=== PATIENT | female | born 1970 | race Caucasian/White ===

== ENCOUNTER → 2020-06-05 10:40 | Outpatient (CLI) | payer SELFPAY ==
--- NOTE | 2020-06-05 10:45 | VDLE_ITS ---
Reason For Study: VARICOSE VEINS RIGHT LEFT CFV is compressible, spontaneous, phasic, CFV is compressible, spontaneous, phasic, competent and demonstrates normal competent, and demonstrates normal augmentation. augmentation. Procedure FV is compressible, spontaneous, phasic, Exam performed in department. competent and demonstrates normal A preliminary report was called and/or faxed augmentation. to Dr Dooley's RN. POP V is compressible, spontaneous, phasic, competent and demonstrates normal augmentation. T/P Trunk is compressible. PTV is compressible. LT PerV is compressible. Left GSV is dilated and NONCOMPRESSIBLE from the SFJ to the knee. GSV is compressible for the remainder of the vessel. Left SSV is dilated and NONCOMPRESSIBLE throughout. Interpretation Summary There is no evidence of left lower extremity deep vein thrombosis. Superficial thrombophlebitis left great saphenous vein from the saphenofemoral junction to the knee. Superficial thrombophlebitis left small saphenous vein Patent and compressible right common femoral vein Ordering Physician: Everardo Dooley Referring Physician: Everardo Dooley Performed By: Laurel Tapia, PUSHPA, RVT
== END ==
PROVIDERS: Referring Provider Physician Assistant; Visit Provider Physician Assistant
DX: I83.812 Varicose veins of left lower extremity with pain (principal)
CPT/HCPCS: 93971

== ENCOUNTER → 2020-10-23 08:31 | Outpatient (CLI) | payer SELFPAY ==
--- NOTE | 2020-10-23 08:35 | VDLE_ITS ---
Reason For Study: Pain, Hx of SVT RIGHT LEFT CFV is compressible, spontaneous, phasic, CFV is compressible, spontaneous, phasic, competent and demonstrates normal competent, and demonstrates normal augmentation. augmentation. FV is compressible, spontaneous, phasic, competent and demonstrates normal augmentation. POP V is compressible, spontaneous, phasic, competent and demonstrates normal augmentation. T/P Trunk is compressible. PTV is compressible. LT PerV is compressible. Lt GSV is dilated and non compressible at prox and mid thigh Lt SFJ is compressible Lt SSV is compressible Improvement from previous study done on 06/2020 Image 19 is mislabeled, should be labeled Lt SFJ. VL/Venous Duplex US, Unilateral Interpretation Summary There is no evidence of left lower extremity deep vein thrombosis. Superficial thrombophlebitis left great saphenous vein Resumption of compressibility left small saphenous vein Improvement noted since the previous examination of June 05, 2020 Normal flow patterns right common femoral vein Ordering Physician: Everardo Dooley Referring Physician: Everardo Dooley Performed By: Carmen Alston, PUSHPA, RVT
== END ==
PROVIDERS: PCP Physician Assistant; Referring Provider Physician Assistant; Visit Provider Physician Assistant
DX: I83.812 Varicose veins of left lower extremity with pain (principal)
CPT/HCPCS: 93971

== ENCOUNTER 2021-02-12 00:52 | Emergency (ER) | payer OTHER, SELFPAY ==
[2021-02-12 00:52] VITALS: BP 131/96; PULSE 79; RESP 18; O2SAT 98
[2021-02-12 00:53] VITALS: PULSE 76; RESP 18; TEMP 36.2; O2SAT 98; BMI 25.8
--- NOTE | 2021-02-12 01:01 | EX.ED.UPPERE ---
HPI History of Present Illness Chief Complaint: Upper Extremity Injury Informant: patient Narrative Narrative: Patient fell off a ladder while standing on the 2nd rung. She fell on outstretched hand. She has pain in her right wrist and forearm area. She never hit her head. No loss of consciousness. No other areas are sore. Ice helps and she took Motrin that has helped. Motion or pressing on it makes it worse. She is right-hand dominant. PFSH PFSH Home Medications oxycodone-acetaminophen [Percocet] 1 tab PO Q6H PRN 3 Days #12 tab 02/12/21 [Rx Last Taken Unknown] Allergy/AdvReac Type Severity Reaction Status Date / Time No Known Allergies Allergy Verified 02/12/21 00:54 Social History Smoking Status: Current every day smoker tobacco type: cigarettes ROS ROS ED Eyes Eyes: Denies blurry vision Gastrointestinal Gastrointestinal: Denies nausea or vomiting Musculoskeletal Musculoskeletal: Reports other Details: See history of present illness. ; Denies back pain or neck pain Integumentary Denies Abrasions or rash Neurologic Neurologic: Denies paresthesias or weakness Hematologic/Lymphatic Hematologic/Lymphatic: Denies easy bleeding or easy bruising EXAM Physical Exam Const Vital Signs: 02/12/21 00:52 02/12/21 00:53 Temperature 97.1 F L Temperature Source Temporal Pulse Rate 79 76 Respiratory Rate 18 18 Blood Pressure 131/96 H Blood Pressure Mean 107 Pulse Ox 98 98 Oxygen Delivery Method Room Air Room Air Positive well nourished and well developed General Appearance ED: well developed HEENT normocephalic and atraumatic Resp normal respiratory effort Back/Spine Cervical Spine: Negative for cervical spine tenderness Thoracic Spine / Upper Back: Negative for thoracic spinal tenderness Lumbar Spine / Lower Back: Negative for lumbar spinal tenderness Extremity Extremity Narrative: There may be just a hint of swelling dorsal distal aspect of her right forearm/wrist. No deformity noted. There are some mild tenderness there. No tenderness in the hand. Neuro oriented x3, no focal motor deficits and no sensory deficits noted Sensorium / Orientation: alert Psych mental status grossly normal Skin Skin Narrative: No abrasions or lacerations. Lesions: no lesions Rashes: no rashes MDM MDM MDM Narrative Medical decision making narrative: X-rays do show a distal radius fracture with minimal displacement. We discussed options/plan. Patient was placed in a dorsal and volar splint with the wrist in neutral to slightly volar angulation. We will give her oxycodone here. I will give her a prescription to go. She will be referred to Dr. Delgado of orthopedics. It was explained that she will likely get a full cast in a few days to a week. If she has numbness tingling tightness increasing pain or any other concerns she should return. Procedure: Splint placement Her right wrist was placed in a dorsal and volar splint using 3 inch padded fiberglass. Milton wrap applied over this. Splint was applied so she had range of motion of her fingers. It went to the proximal forearm. She was checked after splint placement had good range of motion capillary refill and sensation. She had had an [place] wrap around this. She tolerated this well. Discharge Plan Triage Chief Complaint: Upper Extremity Injury ED Provider: Mario Partida Dx/Rx/DC Orders Clinical Impression: Fall from ladder, Colles' fracture of right radius Instructions: ED Colles Fracture No Reduction ... Prescriptions: New oxycodone-acetaminophen [Percocet] 5-325 mg tablet 1 tab PO Q6H PRN (Reason: pain) 3 Days Qty: 12 RF: 0 Primary Care Provider: Everardo Dooley Referrals: Everardo Dooley DO [Primary Care Provider] - Aiden Delgado MD [STAFF PHYSICIAN] - As soon as possible Disposition Disposition: Home, Self Care
--- NOTE | 2021-02-12 01:08 | RAD_ITS ---
STUDY: X-RAY - RIGHT RADIUS AND ULNA REASON FOR EXAM: Female, 50 years old. trauma TECHNIQUE: 2 view(s) of the forearm. COMPARISON: None. FINDINGS: There is no demonstrated soft tissue swelling. There is buckle fracture in the distal metaphysis of the radius. Normal visualized ulna. RAD/Forearm 2 Views IMPRESSION: There is buckle fracture in the distal metaphysis of the radius. Electronically Signed: Erasmo Luna MD at 1:26 EST Tel , Service support ,
--- NOTE | 2021-02-12 01:08 | RAD_ITS ---
STUDY: X-RAY - RIGHT WRIST REASON FOR EXAM: Female, 50 years old. trauma TECHNIQUE: 3 view(s) of the wrist were obtained. COMPARISON: None. FINDINGS: There is buckle fracture in the distal metaphysis of the radius. Normal radiocarpal articulation. Normal distal radioulnar articulation. Normal carpal bones. Normal carpal articulations. Normal carpometacarpal articulation of the thumb. Normal second through fifth carpometacarpal articulations. Normal visualized metacarpal bones. The soft tissue structures are unremarkable. RAD/Wrist min 3 Views IMPRESSION: There is buckle fracture in the distal metaphysis of the radius. Electronically Signed: Erasmo Luna MD at 1:30 EST Tel , Service support ,
[2021-02-12] MEDS: oxyCODONE 5 MG Tablet PO (01:38)
== END 2021-02-12 02:19 | disposition home or self-care (01) ==
PROVIDERS: Emergency Provider Emergency Medicine; PCP Physician Assistant
DX: S52.531A Colles' fracture of right radius, initial encounter for closed fracture (principal); W11.XXXA Fall on and from ladder, initial encounter; Y93.9 Activity, unspecified; Y92.9 Unspecified place or not applicable; Y99.9 Unspecified external cause status; F17.210 Nicotine dependence, cigarettes, uncomplicated
CPT/HCPCS: 29125; 73090; 73110; 99283

== ENCOUNTER 2023-06-09 00:39 | Emergency (ER) | payer OTHER, SELFPAY ==
[2023-06-09 00:40] VITALS: BP 119/81; PULSE 108; RESP 18; TEMP 36.6; O2SAT 92; BMI 30.4
[2023-06-09 00:48] VITALS: O2SAT 94
--- NOTE | 2023-06-09 00:53 | EKG12_ITS ---
Test Reason : SOB Blood Pressure : / mmHG Vent. Rate : 106 BPM Atrial Rate : 106 BPM P-R Int : 142 ms QRS Dur : 064 ms QT Int : 330 ms P-R-T Axes : 072 063 067 degrees QTc Int : 438 ms Sinus tachycardia Low voltage QRS Borderline ECG Confirmed by Fabricio Ojeda ([id number]), sports editor MANDIE DEGROOT ([id number]) on 06/12/2023 2:10:45 PM Referred By: TEVIN Confirmed By:Fabricio Ojeda
--- NOTE | 2023-06-09 00:55 | ED.VIS.DYS ---
HPI History of Present Illness Chief Complaint: Shortness of Breath Informant: spouse/S.O. Onset/Context/Timing Onset: Month(s) Context: gradual Timing: Continuous Quality: Positive for Wheezing Current Severity: Moderate Maximum Severity: Moderate Worsened by: Coughing Relieved by: Albuterol Associated Symptoms cough; Negative for fever Chest Pain: Positive for None Narrative Narrative: 53-year-old female former smoker quit 2 years ago. History of COPD but did not want further workup. She has had shortness of breath for the last month. Initially was on 5 days of steroids and then a second round of 10 days. She has been off the steroids for more than a week. States she has been wheezing and has a nonproductive cough. Denies any chest pain. She does have a history of a prior DVT and is on Eliquis and has been taking her Eliquis. Denies any hemoptysis or chest pain. No fever. Home pulse ox is between 80-92 she is not on oxygen. Monday later today she was post have pulmonary function tests done at the hospital. PE Risk Factors: Positive for Prior DVT or PE; Negative for Cancer, OCP + Smoking + > 35, Recent immobilization, Recent surgery or Recent travel Prior similar symptoms: Yes Recent Illness/Hospitalization: No [facility] Medical History Broken rib (~05/28/23) COPD (chronic obstructive pulmonary disease) Factor 5 Leiden mutation, heterozygous Osteoporosis Home Medications oxycodone-acetaminophen 5 mg-325 mg tablet (Percocet) 1 tab PO Q6H PRN pain 3 days #12 tabs 02/12/21 [Rx Last Taken Unknown] albuterol sulfate 2.5 mg/3 mL (0.083 %) solution for nebulization 2.5 mg (3 mL) inhalation Q4H PRN #25 vials 06/09/23 [Rx Last Taken Unknown] budesonide 0.5 mg/2 mL suspension for nebulization 0.5 mg (2 mL) inhalation BID PRN wheezing #60 mL 06/09/23 [Rx Last Taken Unknown] prednisone 20 mg tablet 40 mg (2 x 20 mg) PO DAILY 7 days #14 tabs 06/09/23 [Rx Last Taken Unknown] Allergy/AdvReac Type Severity Reaction Status Date / Time No Known Allergies Allergy Verified 06/09/23 00:44 Social History Smoking Status: Former smoker ROS ROS ED ROS Narrative Wheezing. Short of breath. Nonproductive cough. No right rib fracture with rib pain. Review of Systems ROS Unobtainable: Denies due to encephalopathy Constitutional Constitutional ED: Denies chills or fever(s) Eyes Eyes: Denies blurry vision ENT ENT ED: Denies ear pain Cardiovascular Cardiovascular: Denies chest pain, palpitations or racing heartbeat Respiratory/Chest Respiratory/Chest: Reports cough and dyspnea Gastrointestinal Gastrointestinal: Denies abdominal pain, constipation, diarrhea, melena, nausea or vomiting Genitourinary Genitourinary ED: Denies dysuria or hematuria Musculoskeletal Musculoskeletal: Denies arthralgias Integumentary Denies abscess Neurologic Neurologic: Denies headache(s) Psychiatric Psychiatric: Denies anxiety or depression Endocrine Endocrinology: Denies cold intolerance Hematologic/Lymphatic Hematologic/Lymphatic: Denies easy bleeding or easy bruising Allergic/Immunologic Allergic/Immunologic ED: Denies mouth swelling, tongue swelling or urticaria EXAM Physical Exam Narrative Exam Narrative: 53-year-old female vital signs stable. Pulse ox 90% on room air. Afebrile. Does not look septic or toxic. H EENT exam unremarkable. Mytrex membranes. Neck nontender no JVD. No lymphadenopathy. Lungs prolonged expiratory phase. Scattered expiratory wheezes. No rales or rhonchi. Equal and symmetrical. Heart tachycardic rate of 108 no murmur. Chest wall right lower rib cage tenderness. Reportedly has a known right rib fracture from coughing. No crepitance or subcu air. Abdomen soft nontender. Moving all 4 extremities. Nontender no edema. Calves are nontender. Neurologically she is awake and alert with no focal motor deficits. Const Vital Signs: 06/09/23 00:40 06/09/23 00:48 06/09/23 01:16 Temperature 97.9 F Temperature Source Temporal Pulse Rate 108 H 107 H Respiratory Rate 18 14 Respiratory Effort Short of Breath Labored Respiratory Depth Normal Respiratory Pattern Normal Normal Blood Pressure 119/81 H Blood Pressure Mean 93 Pulse Ox 92 Oxygen Delivery Method Room Air Room Air 06/09/23 01:13 Temperature Temperature Source Pulse Rate Respiratory Rate Respiratory Effort Respiratory Depth Respiratory Pattern Blood Pressure Blood Pressure Mean Pulse Ox Oxygen Delivery Method Room Air Positive well nourished and well developed; Negative for cachectic, contractures or unkempt General Appearance ED: well developed and NAD; Negative for unkempt, cachectic, contractures or pallor Nutritional Appearance: Negative for cachectic HEENT Reports moist mucous membranes; Denies dry mucous membranes Negative for atraumatic, trauma or tenderness Mouth ED: No dry mucous membranes Mouth: No dry mucous membranes Eyes PERRL and EOMs intact bilaterally General Eye ED: Negative for pale conjunctiva or scleral icterus Neck no lymphadenopathy, supple, no meningeal signs and no JVD General: Negative for tenderness Lymph Lymphatic: Negative for other Resp No normal respiratory effort and No clear to auscultation bilaterally Resp Narrative: Bilateral expiratory wheezes. Prolonged expiratory phase. Mild respiratory distress. Auscultation: wheezes; Negative for rales or rhonchi Cardio regular rhythm, S1 normal heart sound, S2 normal heart sound and no murmurs; Negative for regular rate Rate: tachycardic Rhythm: Negative for abnormal rhythm GI non-tender, non-distended and no masses Inspection: Negative for other Auscultation: normoactive bowel sounds Palpation: soft; Negative for tender, guarding or rebound tenderness present Back/Spine no CVA tenderness and normal to inspection General Back: Negative for CVA tenderness Extremity normal to inspection General Extremety ED: Negative for edema or tenderness General Extremity: Negative for edema Neuro oriented x3 and CN's II-XII intact bilaterally Neuro Narrative: Laryngitis. Sensorium / Orientation: alert, oriented to person, oriented to place and oriented to time; Negative for orientation impaired, confused, lethargic or stuporous Motor Exam: strength 5/5 throughout Psych mental status grossly normal Appearance: Negative for unkempt Attitude: No agitated and No other Mood & Affect: Negative for depressed Thought Process: normal thought process Skin no wounds and skin turgor normal General Skin Exam: Negative for jaundice or pallor Lesions: no lesions Rashes: no rashes Trauma: Negative for abrasion or laceration MDM MDM MDM Narrative Medical decision making narrative: 33-year-old female appears to have exacerbation of COPD with expiratory wheezing. Will be treated with DuoNeb and albuterol aerosols. IV Solu-Medrol. Chest x-ray, labs and EKG. I do not think this is a cardiac event. I do not hear any signs of pneumonia. Repeat exam at 2 AM patient is doing better. She was treated with DuoNeb and albuterol aerosols. Also IV Solu-Medrol. She still has a few scattered wheezes. But she is moving air much more easily. We went over her test results are basically unremarkable. She and her are comfortable with her being discharged home. She will be started on prednisone 40 mg a day for 1 week. Prescriptions for albuterol for her nebulizer and follow-up with pulmonology and reschedule her pulmonary functions test. Clinically I think is exacerbation of COPD. History & Record Review Discussion w/independent historian: Patient Additional record(s) reviewed:: Prior inpatient record, Prior outpatient record, Prior ED visit and Prior labs Lab Data Attestation: I reviewed the patient's lab results. Lab results narrative: CBC unremarkable. White count of 6. H&H of 14 and 42. Platelets 234. Chemistries show gap of 6. Normal BUN and creatinine. Glucose 108. Troponin 5. COVID, flu and RSV negative. Labs: Laboratory Results - last 24 hr 06/09/23 00:45 WBC 6.4 RBC 4.65 Hgb 14.0 Hct 42.4 MCV 91.2 MCH 30.1 MCHC 33.0 RDW Std Deviation 40.4 RDW Coeff of Tan 12.1 Plt Count 234 MPV 10.6 Immature Gran % (Auto) 0.200 Neut % (Auto) 43.7 L Lymph % (Auto) 26.9 [place] % (Auto) 14.2 H Eos % (Auto) 14.2 H Baso % (Auto) 0.8 Absolute Neuts (auto) 2.8 Absolute Lymphs (auto) 1.72 Nucleated RBC % 0 Sodium 139 Potassium 3.9 Chloride 106 Carbon Dioxide 27.0 Anion Gap 6 BUN 8 Creatinine 0.88 Estim Creat Clear Calc 82.28 Est GFR (MDRD) Af Amer 85 Est GFR (MDRD) Non-Af 70 BUN/Creatinine Ratio 9.0 L Glucose 108 H Calcium 9.0 Troponin I High Sens 5 Radiography Chest X-Ray - ED: 1 View, Read by ED Physician, Read by Radiologist, Heart, Lungs, Mediastinum, Bony Structures, No Acute Disease and Chronic Changes Diagnostic Testing: Clinical Impression(s) from Imaging Studies Chest X-Ray 06/09/23 01:38 IMPRESSION: No acute pulmonary finding. Electronically Signed: Alban Quiroz MD at 1:55 EST Reading Location ID and State: [facility] / [place] Tel , Service support , Chest x-ray, portable, single view interpreted both by myself and the radiologist shows no acute abnormality. Normal cardiac silhouette. Normal lung moore. No infiltrate. No pneumothorax. Rhythm Strip Rhythm Strip: Sinus Tach Rate: 126 Ectopy: None EKG Initial EKG: Attestation: I personally reviewed and interpreted this EKG as follows: Interpretation: No Acute Injury Pattern and Sinus Tachycardia Comments: Sinus tachycardia rate of 126 no acute signs of AR or ischemia. Discharge Plan Triage Chief Complaint: Shortness of Breath ED Provider: Victorino Lilly Dx/Rx/DC Orders Clinical Impression: Bilateral wheezing, Acute dyspnea, COPD exacerbation Instructions: ED COPD Flare Prescriptions: New prednisone 20 mg tablet 40 mg PO DAILY 7 Days Qty: 14 0RF albuterol sulfate 2.5 mg /3 mL (0.083 %) solution for nebulization 2.5 mg inhalation Q4H PRN Qty: 25 0RF Rx Instructions: Use q4 hours and PRN for wheezing budesonide 0.5 mg/2 mL suspension for nebulization 0.5 mg inhalation BID PRN (Reason: wheezing) Qty: 60 0RF No Action oxycodone-acetaminophen [Percocet] 5-325 mg tablet 1 tab PO Q6H PRN (Reason: pain) 3 Days Qty: 12 0RF Primary Care Provider: Everardo Dooley Referrals: Everardo Dooley PA-C [Primary Care Provider] - As Needed Jarrett Bhatia DO [Med Staff - Active Staff] - As soon as possible Activity Restrictions/Additional Instructions: Prednisone daily 40 mg a day. Use your nebulizer or inhaler as needed. Reschedule your pulmonary function test. Try to follow-up with a local corporate aircraft mechanic. I referred you to Dr. Jarrett Bhatia here but you can go to whoever you would like. Disposition Disposition: Home, Self Care
[2023-06-09 01:03] LABS: Absolute Lymphocyte Count 1.72 X10^3/uL (0.83-4.51); Absolute Neutrophil Count 2.8 X10^3/uL (2.0-7.7); Basophil# 0.05 X10^3/uL; Basophil% 0.8 % (0-1); Eosinophil# 0.91 X10^3/uL; Eosinophils% 14.2 % (0-5); Hematocrit 42.4 % (37-47); Lymphocyte # 1.72 X10^3/ul (0.83-4.51); Lymphocyte % 26.9 % (19-41); Mean Corpuscular Hgb 30.1 pg (27.0-32.0); Mean Corpuscular Volume 91.2 fL (81-99); Mean Platelet Vol. 10.6 fl (6.2-12.0); Monocyte# 0.91 X10^3/uL; Monocyte% 14.2 % (0-10); NRBC Flagged by Analyzer 0 % (0-5); Neutrophil # 2.79 X10^3/uL (2.7-7.7); Neutrophil % 43.7 % (47-70); Platelet Count 234 K/mm3 (150-450); RBC Distribution Width CV 12.1 % (11.6-14.6); RBC Distribution Width SD 40.4 fl (35.1-43.9); Red Blood Count 4.65 M/mm3 (4.2-5.4); White Blood Count 6.4 K/mm3 (4.4-11.0)
[2023-06-09] MEDS: MethylPREDNISolone 125 MG/2 ML Vial IV (01:03)
[2023-06-09] MEDS: Albuterol 2.5 MG/3 ML VIAL.NEB. INHALATION ×2 (01:07)
[2023-06-09] MEDS: Ipratropium/Albuterol Sulfate 3 ML AMPUL.NEB INHALATION (01:07)
[2023-06-09 01:16] VITALS: PULSE 107; RESP 14
[2023-06-09 01:35] LABS: Anion Gap 6 (5-15); BUN 8 mg/dL (7-18); Chloride 106 mmol/L (98-107); Creatinine, Serum 0.88 mg/dL (0.55-1.02); EST Glomerular Filtration Rate 70 mL/min (>60); Est Glom Filt Rate - Afr Amer 85 mL/min (>60); Estimated Creatinine Clearance 82.28 ml/min; Glucose 108 mg/dL (74-106); Potassium 3.9 mmol/L (3.5-5.1); Sodium Level 139 mmol/L (136-145); Troponin-I HS 5 pg/mL (3.0-54.0)
--- NOTE | 2023-06-09 01:38 | RAD_ITS ---
INDICATION: dyspnea EXAMINATION/TECHNIQUE: X-RAY - XR Chest 1 View COMPARISON: 12.29.2011 FINDINGS: LINES/DEVICES: None. LUNGS: The lungs are well expanded. No consolidation, edema or effusion. No pneumothorax. MEDIASTINUM AND CARDIOVASCULAR STRUCTURES: Cardiac silhouette not enlarged. Central airways and mediastinal contour are unremarkable. BONES AND SOFT TISSUES: No acute osseous abnormalities. RAD/Chest 1 View (Portable) IMPRESSION: No acute pulmonary finding. Electronically Signed: Alban Quiroz MD at 1:55 EST ,
--- NOTE | 2023-06-09 02:06 | CPS ---
Patient declined third albuterol Tx
--- OUTSIDE RECORDS SUMMARY | 2023-06-09 02:14 | XMS RPT_ITS | CCD ---
Author Name Unknown Address [email or web address] [place] [address] Organization [facility] Care Team Providers Care Fire Sprinkler Inspector Name Role Phone Tourlas, Srikanth Unavailable Unavailabl e Shilpa, Nia L Unavailable Unavailable Tourlas, Srikanth Unavailable Unavailabl e Shilpa, Nia L Unavailable Unavailable Tourlas, Srikanth Unavailable Unavailabl e Tourlas, Srikanth Unavailable Unavailabl e Shilpa, Nia L Unavailable Unavailable Shilpa, Nai L Unavailable Unavailable Tourlas, Srikanth Unavailable Unavailabl e Tourlas, Srikanth Unavailable Unavailabl e Newbill, Marcell Sukh Unavailable Unavailable Newbill, Marcell Sukh Unavailable Unavailable Shilpa, Nia L Unavailable Unavailable Tourlas, Srikanth Unavailable Unavailabl e Shilpa, Nia L Unavailable Unavailable Tourlas, Srikanth Unavailable Unavailabl e Rohini, Smith Unavailable Unavailable Shilpa, Nia L Unavailable Unavailable Rohini, Smith Unavailable Unavailable Grassick, Anel A Unavailable Unavailable Unavailable No, Physician Primary Care Provider Unavailabl e NO, PHYSICIAN Primary Care Unavailable CONNJANETIA LUC Attending Unavail able NO, PHYSICIAN Primary Care Unavailable CONN, BINDU LUC Attending Unavail able Shilpa, Nia L Unavailable Anel Coppola A Unavailable Unavailable Ely Hodges Unavailable Unavailabl e Aiden Delgado Unavailable Unavailable Unavailable Primary Care Provider Unavailabl e Gregorio Salmeron A Unavailable Chema Winkler Unavailable Unavailable Gregorio Salmeron A Unavailable Evangelista Boothe Unavailable Unavailabl e Hamad, Gerard Unavailable Unavailable Kala Fernandez Unavailable Faviola HOBBS, Gregorio Escalante Primary Care Provid er Fernandez, Mary Attending Unavailable Faviola, Mr. Gregorio Escalante Referring Unav ailable Faviola, Mr. Gregorio Escalante Primary Care Unav ailable Faviola, Mr. Gregorio Escalante Primary Care Unav ailable Faviola, Mr. Gregorio Escalante Primary Care Unav ailable HAMYARELIS, Dr. GALO Attending Unavailable Salmeron, Mr. Gregorio Escalante Primary Care Unav ailable Faviola ANJEL, Gregorio Escalante Primary Care Provid er Tl, Dr. Evangelista Almaguer Attending Unav ailable Faviola, Mr. Gregorio Escalante Primary Care Unav ailable Ted, Carmen Admitting Unavailable Carmen Jean Attending Unavailable Salmeron, Mr. Gregorio Escalante Primary Care Unav ailrl MADELINE, ROXY ARREGUIN Consulting Unavailab vikki SALMERON, GREGORIO NELL Primary Care Unavaila BETY Park Attending Unavailable SYSTEM, PROVIDER NOT IN Referring Unavaila NELL Valdez Admitting NELL Bob Consulting ANKUR Echeverria Referring Unavaila bernie SALMERON, GREGORIO ESCALANTE Primary Care Unavaila bernie SALMERON, GREGORIO ESCALANTE Primary Care Unavaila ANKUR Grady Referring Unavaila ble GREGORIO SALMERON Primary Care Unavaila ANKUR Grady Attending Unavaila ROXY Romero Admitting Unavailab ROXY Christianson Referring Unavailab le GREGORIO SALMERON Primary Care Unavaila ROXY Romero Attending Unavailab GREGORIO Osorio Primary Care Unavaila ROXY Romero Admitting Unavailab ROXY Christianson Referring Unavailab GREGORIO Osorio NELL Primary Care Unavaila ROXY Romero Attending Unavailab le GREGORIO SALMERON NELL Primary Care Unavaila ble FAVIOLA, GREGORIO NELL Primary Care Unavaila ble DORI SHAW Attending Unavailable FAVIOLA, GREGORIO NELL Primary Care Unavaila ble VICENTA MARTINEZ Attending Unava ilable SALMERONGREGORIO ARREDONDO Primary Care Unavaila ble DORI SHAW Attending Unavailable VLADISLAV BARNETT Attending Unavailable GREGORIO SALMERON [facility] Unavaila ble Medications Current Medications Medication Drug Class(es) Dates Sig (Normalized) Sig (Original) [id number] 200 actuat albuterol 0.09 mg/actuat metered dose inhaler (5 sources) beta2-Adrenergic Agonist Start: 10-15-2022 End: 11-14-2022 take 2 puff(s) by inhalation every four hours as needed albuterol 90 mcg/actuation inhaler Inhale 2 (two) puffs every 4 (four) hours as needed . 6.7 g 0 10/15/2022 11/14/2022 Active Completed/Discontinued Medications Medication Drug Class(es) Dates Sig (Normalized) Sig (Original) apixaban 5 mg oral tablet (9 sources) Factor Xa Inhibitor Start: 04-10-2021 End: 04-16-2021 take 1 tablet by mouth twice daily Eliquis 5 mg oral tablet ; 1 tab(s) orally 2 times a day Quantity: 0 Refills: 0 Ordered: 24-Jun-2021 Fabricio Hutchins Start: 10-Apr-2021 End: 16-Apr-2021 Generic Substitution Allowed Comments: Check with your doctor before becoming .It is very important that you take or use this exactly as directed. Do not skip doses or discontinue unless directed by your doctor.Obtain medical advice before taking any non-prescription drugs as some may affect the action of this medication. Problems Active Problems Problem Classification Problem Date Documented Date Episodic/Chronic Acquired foot deformities (4 sources) Hammer toe; Translations: [Other hammer toe(s) (acquired), right foot] Onset: 12-02-2021 Chronic Acute bronchitis (1 source) Acute bronchitis; Translations: [Acute bronchitis] 06-24-2021 Episodic Acute bronchitis (1 source) Acute bronchitis 06-24-2021 Chronic obstructive pulmonary disease and bronchiectasis (2 sources) Chronic obstructive pulmonary disease with (acute) exacerbation; Translations: [Chronic obstructive pulmonary disease with (acute) exacerbation] Onset: 02-18-2023 Chronic Coagulation and hemorrhagic disorders (20 sources) Factor V Leiden mutation; Translations: [Primary hypercoagulable state] Onset: 09-12-2022 09-12-2022 Chronic E Codes: Fall (3 sources) Fall on same level from slipping, tripping and stumbling without subsequent striking against object, initial encounter; Translations: [Fall] Onset: 09-12-2022 09-12-2022 Episodic Fracture of lower limb (7 sources) Displaced transverse fracture of right patella, initial encounter for closed fracture; Translations: [Unspecified fracture of right patella, initial encounter for closed fracture] Onset: 09-12-2022 Episodic Fracture of upper limb (16 sources) Closed Colles' fracture; Translations: [Aftercare for healing traumatic fracture of lower arm] Episodic Headache; including migraine (1 source) Acute headache; Translations: [Acute nonintractable headache, unspecified headache type] Episodic Headache; including migraine (2 sources) Headache; including migraine; Translations: [Headache, unspecified] Onset: 03-01-2023 Immunizations and screening for infectious disease (2 sources) Contact with or exposure to other viral diseases; Translations: [Close exposure to COVID-19 virus] Onset: 09-12-2022 Episodic Inflammatory diseases of female pelvic organs (18 sources) Bacterial vaginosis; Translations: [Vaginitis and vulvovaginitis, unspecified] Episodic Other acquired deformities (1 source) Unspecified acquired deformity of right lower leg; Translations: [Unspecified acquired deformity of right lower leg] Onset: 09-12-2022 Episodic Other aftercare (2 sources) Encounter for follow-up examination after completed treatment for conditions other than malignant neoplasm; Translations: [Encounter for follow-up examination after completed treatment for conditions other than malignant neoplasm] Onset: 09-30-2022 Episodic Other connective tissue disease (2 sources) Leg swelling symptom 04-12-2021 Episodic Past or Other Problems Problem Classification Problem Date Documented Da te Episodic/Chronic Other connective tissue disease (3 sources) Metatarsalgia of right foot; Translations: [Metatarsalgia, right foot] Onset: 12-02-2021 Episodic Other connective tissue disease (2 sources) Pain in left foot; Translations: [Pain in left foot] Onset: 12-02-2021 Episodic Other connective tissue disease (2 sources) Pain in right foot; Translations: [Pain in right foot] Onset: 12-02-2021 Episodic Other connective tissue disease (2 sources) Calcaneal spur, left foot; Translations: [Calcaneal spur, left foot] Onset: 12-02-2021 Episodic Other connective tissue disease (2 sources) Calcaneal spur, right foot; Translations: [Calcaneal spur, right foot] Onset: 12-02-2021 Episodic Other connective tissue disease (1 source) Metatarsalgia, right foot; Translations: [Metatarsalgia, right foot] Onset: 12-02-2021 Episodic Other upper respiratory infections (3 sources) Upper respiratory infection; Translations: [Acute upper respiratory infection, unspecified] Onset: 02-18-2023 Episodic Otitis media and related conditions (2 sources) Unspecified Eustachian tube disorder, right ear; Translations: [Unspecified eustachian tube disorder, right ear] Onset: 03-01-2023 Episodic Phlebitis; thrombophlebitis and thromboembolism (4 sources) Deep venous thrombosis; Translations: [Acute venous embolism and thrombosis of unspecified deep vessels of lower extremity] Onset: 11-19-2021 04-12-2021 Episodic Pneumonia (except that caused by tuberculosis or sexually transmitted disease) (2 sources) Pneumonia, unspecified organism; Translations: [Pneumonia, unspecified organism] Onset: 10-15-2022 Episodic Pulmonary heart disease (4 sources) Pulmonary embolism; Translations: [Other pulmonary embolism and infarction] Onset: 11-19-2021 04-12-2021 Episodic Results Test Name Value Interpretation Reference Range Facil ity Vital Signs Date Time Vital Sign Value Performing Clinician Facility 12-02-2021 13:03-0400 Body temperature 97.2 [degF] Ankur Hallman DPM Work Phone: [facility] 12-02-2021 13:03-0400 Diastolic blood pressure 77 mm[Hg] Ankur Hallman DPM Work Phone: [facility] 12-02-2021 13:03-0400 Heart rate 81 /min Ankur Hallman DPM Work Phone: [facility] 12-02-2021 13:03-0400 Systolic blood pressure 117 mm[Hg] Ankur Hallman DPM Work Phone: [facility] 06-29-2021 09:50-0400 Body height 171.45 cm Gregorio Salmeron Work Phone: -[facility] Work Phone: 06-29-2021 09:50-0400 Body mass index (BMI) [Ratio] 26.7 kg/m2 Gregorio Brooksman Work Phone: -[facility] Work Phone: 06-29-2021 09:50-0400 Body surface area Derived from formula 1.91 m2 Gregorio Brooksman Work Phone: -[facility] Work Phone: 06-29-2021 09:50-0400 Body weight 78.47 kg Gregorio Salmeron Work Phone: -[facility] Work Phone: 06-29-2021 09:50-0400 Diastolic blood pressure 70 mm[Hg] [facility]man [facility] Work Phone: 06-29-2021 09:50-0400 Systolic blood pressure 116 mm[Hg] Gregorio Brooksman Work Phone: -[facility] Work Phone: 06-24-2021 13:00-0400 Diastolic blood pressure 64 mm[Hg] Nia Massey Other Phone: [facility] 06-24-2021 13:00-0400 Heart rate 82 /min Nia Massey Other Phone: [facility] 06-24-2021 13:00-0400 Respiratory rate 18 /min Nia Massey Other Phone: [facility] 06-24-2021 13:00-0400 SaO2% (BldA) [Mass fraction] 96 % Nia Massey Other Phone: [facility] 06-24-2021 13:00-0400 Systolic blood pressure 104 mm[Hg] Nia Massey Other Phone: [facility] 06-24-2021 11:55-0400 FiO2 21 1 Nia Massey Other Phone: [facility] 06-24-2021 11:52-0400 Body temperature 98.06 [degF] Nia Massey Other Phone: [facility] 06-24-2021 11:52-0400 Body weight 79 kg Nia Shilpa Other Phone: [facility] 04-12-2021 19:30-0500 Diastolic blood pressure 64 mm[Hg] Nia Massey Other Phone: [facility] 04-12-2021 19:30-0500 Heart rate 82 /min Nia Massey Other Phone: [facility] 04-12-2021 19:30-0500 Respiratory rate 18 /min Nia Massey Other Phone: [facility] 04-12-2021 19:30-0500 SaO2% (BldA) [Mass fraction] 96 % Nia Massey Other Phone: [facility] 04-12-2021 19:30-0500 Systolic blood pressure 99 mm[Hg] Nia Massey Other Phone: [facility] 04-12-2021 14:23-0500 Body height 175.2 cm Nia Massey Other Phone: [facility] 04-12-2021 14:23-0500 Body temperature 97.34 [degF] Nia Massey Other Phone: [facility] 04-12-2021 14:23-0500 Body weight 72.7 kg Nia Shilpa Other Phone: [facility] 04-10-2021 20:44-0500 Diastolic blood pressure 70 mm[Hg] Nia Massey Other Phone: [facility] 04-10-2021 20:44-0500 Heart rate 74 /min Nia Chongitz Other Phone: [facility] 04-10-2021 20:44-0500 Respiratory rate 16 /min Nia Chongitz Other Phone: [facility] 04-10-2021 20:44-0500 SaO2% (BldA) [Mass fraction] 96 % Nia Chongitz Other Phone: [facility] 04-10-2021 20:44-0500 Systolic blood pressure 108 mm[Hg] Nia Chongitz Other Phone: [facility] 04-10-2021 20:35-0500 Body height 175.3 cm Fabricio Temple MD Work Phone: [facility] 04-10-2021 20:34-0500 Body temperature 98.29 [degF] Fabricio Temple MD Work Phone: [facility] 04-10-2021 20:34-0500 Diastolic blood pressure 87 mm[Hg] Fabricio Temple MD Work Phone: [facility] 04-10-2021 20:34-0500 Heart rate 97 /min Fabricio Temple MD Work Phone: [facility] 04-10-2021 20:34-0500 Respiratory rate 16 /min Fabricio Temple MD Work Phone: [facility] 04-10-2021 20:34-0500 SaO2% (BldA) [Mass fraction] 94 % Fabricio Temple MD Work Phone: [facility] 04-10-2021 20:34-0500 Systolic blood pressure 127 mm[Hg] Fabricio Temple MD Work Phone: [facility] 04-10-2021 18:07-0500 Body height 172.7 cm Nia Chongitz Other Phone: [facility] 04-10-2021 18:07-0500 Body temperature 98.24 [degF] Nia Massey Other Phone: [facility] 04-10-2021 18:07-0500 Body weight 72.7 kg Nia Massey Other Phone: [facility] 12-25-2020 16:05-0400 Body height 171.5 cm Bindu Schroeder CONTINUITY DIRECTOR Work Phone: [facility] 12-25-2020 16:05-0400 Body mass index (BMI) [Ratio] 24.69 kg/m2 Bindulori Schroeder CONTINUITY DIRECTOR Work Phone: [facility] 12-25-2020 16:05-0400 Body temperature 98.1 [degF] Bindu Schroeder CONTINUITY DIRECTOR Work Phone: [facility] 12-25-2020 16:05-0400 Body weight 72.58 kg Bindu Schroeder CONTINUITY DIRECTOR Work Phone: [facility] 12-25-2020 16:05-0400 Diastolic blood pressure 73 mm[Hg] Bindu Schroeder CONTINUITY DIRECTOR Work Phone: [facility] 12-25-2020 16:05-0400 Heart rate 79 /min Bindu Schroeder CONTINUITY DIRECTOR Work Phone: [facility] 12-25-2020 16:05-0400 Respiratory rate 16 /min Bindu Schroeder CONTINUITY DIRECTOR Work Phone: [facility] 12-25-2020 16:05-0400 SaO2% (BldA) [Mass fraction] 94 % Bindu Schroeder CONTINUITY DIRECTOR Work Phone: [facility] 12-25-2020 16:05-0400 Systolic blood pressure 112 mm[Hg] Bindu Elda CONTINUITY DIRECTOR Work Phone: [facility] 10-09-2020 09:02-0400 Body height 171.45 cm Anel Coppola Work Phone: [facility] Work Phone: 10-09-2020 09:02-0400 Body mass index (BMI) [Ratio] 24.31 kg/m2 Anel A Grassick Work Phone: [facility] Work Phone: 10-09-2020 09:02-0400 Body surface area Derived from formula 1.84 m2 Anel A Grassick Work Phone: [facility] Work Phone: 10-09-2020 09:02-0400 Body weight 71.47 kg Anel A Grassick Work Phone: [facility] Work Phone: 10-09-2020 09:02-0400 Diastolic blood pressure 64 mm[Hg] Anel A Grassick Work Phone: [facility] Work Phone: 10-09-2020 09:02-0400 Heart rate 80 /min Anel A Grassick Work Phone: [facility] Work Phone: 10-09-2020 09:02-0400 Systolic blood pressure 114 mm[Hg] Anel A Grassick [facility] Work Phone: Encounters Encounter Date Encounter Type Care Provider Facility Start: 05-20-2023 End: 05-20-2023 Emergency department patient visit VLADISLAV ORNELAS [facility] Start: 03-01-2023 End: 03-01-2023 Emergency department patient visit GREGORIO NELL [facility] Start: 02-18-2023 End: 02-18-2023 Emergency department patient visit GREGORIOSeb ESCALANTE [facility] Start: 10-28-2022 End: 11-01-2022 ambulatory ROXY VELÁSQUEZ [facility] Start: 10-28-2022 End: 10-28-2022 Postop follow up visit related to original px Roxy Velásquez MD Work Phone: [facility] Procedures Date Procedure Procedure Detail Performing Clinician Start: 12-02-2021 NURSING COMMUNICATIO N- RITUXAN REACTION Ankur Hallman DPM Work Phone: Start: 12-02-2021 End: 12-02-2021 Radex foot complete minimum 3 views Ankur Hallman DPM Work Phone: Start: 07-12-2021 End: 07-12-2021 Colonoscopy Gregorio Brooksman Work Phone: Start: 07-12-2021 Colonoscopy Gregorio Sade Dano silva Work Phone: Plan of Treatment Date Care Activity Detail Author Start: 09-12-2032 Tetanus vaccination Tetanus: Every 10yrs [facility] Start: 07-13-2031 Screening for malignant neoplasm of colon [facility] Start: 12-09-2022 End: 12-09-2022 Follow-up encounter 12/09/2022 3:15 PM EDT Follow-Up [facility] [address] [id number] Roxy Velásquez MD [address] [id number] [facility] Start: 12-02-2022 Influenza vaccination Sequential Influenza Vaccine (#1) [facility] Start: 12-16-2021 End: 12-16-2021 Patient encounter procedure 12/16/2021 Office Visit Podiatry Ankur Hallman, LAURI [address] [place] [address] [facility] Start: 12-02-2021 Influenza vaccination Sequential Influenza Vaccine (#1) [facility] Start: 11-19-2021 Patient encounter procedure [facility] On[facility] Start: 10-09-2021 History and physical examination, annual for health maintenance Wellness Visit [facility] Start: 07-12-2021 COLON, Provider: Kala Fernandez, Status: Pen, Time: 10:00 AM COLON, Provider: Kala Fernandez, Status: Pen, Time: 10:00 AM [facility] Work Phone: Start: 06-29-2021 Patient encounter procedure [facility] Start: 05-19-2021 OTRECHECKA, Provider: Octavia Blanco, Status: Pen, Time: 9:15 AM OTRECHECKA, Provider: Octavia Blanco, Status: Pen, Time: 9:15 AM [facility] Work Phone: Start: 05-19-2021 Patient encounter procedure [facility] Re[facility] Start: 05-17-2021 OTFUADULT4, Provider: Chitra Samuel, Status: Pen, Time: 9:00 AM OTFUADULT4, Provider: Chitra Samuel, Status: Pen, Time: 9:00 AM [facility] Work Phone: Start: 05-17-2021 Patient encounter procedure [facility] Re[facility] Start: 05-12-2021 OTFUADULT4, Provider: Octavia Blanco, Status: Pen, Time: 9:15 AM OTFUADULT4, Provider: Octavia Blanco, Status: Pen, Time: 9:15 AM [facility] Work Phone: Start: 05-12-2021 Patient encounter procedure [facility] Start: 05-10-2021 OTFUADULT4, Provider: Chitra Samuel, Status: Pen, Time: 9:00 AM OTFUADULT4, Provider: Chitra Samuel, Status: Pen, Time: 9:00 AM [facility] Work Phone: Start: 05-10-2021 Patient encounter procedure [facility] Start: 05-05-2021 OTFUADULT4, Provider: Octavia Blanco, Status: Pen, Time: 9:15 AM OTFUADULT4, Provider: Octavia Blanco, Status: Pen, Time: 9:15 AM [facility] Work Phone: Start: 05-05-2021 Patient encounter procedure [facility] Re[facility] Start: 05-03-2021 OTFUADULT4, Provider: Chitra Samuel, Status: Pen, Time: 9:00 AM OTFUADULT4, Provider: Chitra Samuel, Status: Pen, Time: 9:00 AM [facility] Work Phone: Start: 05-03-2021 Patient encounter procedure [facility] Start: 04-28-2021 OTFUADULT4, Provider: Octavia Blanco, Status: Pen, Time: 10:00 AM OTFUADULT4, Provider: Octavia Blanco, Status: Pen, Time: 10:00 AM [facility] Work Phone: Start: 04-28-2021 Patient encounter procedure [facility] Start: 04-26-2021 OTFUADULT4, Provider: Octavia Blanco, Status: Pen, Time: 9:15 AM OTFUADULT4, Provider: Octavia Blanco, Status: Pen, Time: 9:15 AM [facility] Work Phone: Start: 04-26-2021 Patient encounter procedure [facility] Re[facility] Start: 04-21-2021 OTFUADULT4, Provider: Octavia Blanco, Status: Pen, Time: 9:15 AM OTFUADULT4, Provider: Octavia Blanco, Status: Pen, Time: 9:15 AM [facility] Work Phone: Start: 04-21-2021 Patient encounter procedure [facility] Start: 04-19-2021 OTFUADULT4, Provider: Chitra Samuel, Status: Pen, Time: 9:00 AM OTFUADULT4, Provider: Chitra Samuel, Status: Pen, Time: 9:00 AM [facility] Work Phone: Start: 04-19-2021 Patient encounter procedure [facility] Start: 04-14-2021 OTFUADULT4, Provider: Octavia Blanco, Status: Pen, Time: 9:15 AM OTFUADULT4, Provider: Octavia Blanco, Status: Pen, Time: 9:15 AM [facility] Work Phone: Start: 04-14-2021 Patient encounter procedure [facility] Start: 04-12-2021 OTFUADULT4, Provider: Chitra Samuel, Status: Pen, Time: 9:00 AM OTFUADULT4, Provider: Chitra Samuel, Status: Pen, Time: 9:00 AM [facility] Work Phone: Start: 04-12-2021 Patient encounter procedure Outpatient [facility] Re[facility] [address] [place] [address] Start: 12-Apr-2021 9:00 Aiden Delgado A Intent [facility] Start: 12-02-2020 Influenza vaccination [facility] Start: 2018 Administration of herpes zoster vaccine Zoster Vaccines (1 of 2) [facility] Start: 2018 Screening for malignant neoplasm of colon [facility] Start: 2018 Zoster vaccine hzv live for subcutaneous use ZOSTER (SHINGLES) VACCINE (1 of 2) [facility] Start: 2013 Colonoscopy COLORECTAL CANCER SCREENING DISCUSSION [facility] Start: 2008 Fasting lipid profile LIPID SCREENING [facility] Start: 2008 Screening for malignant neoplasm of breast Mammogram [facility] Start: 2008 Screening mammography MAMMOGRAM SCREENING DISCUSSION [facility] Start: 1989 Screening for malignant neoplasm of cervix CERVICAL CANCER SCREENING DISCUSSION [facility] Start: 1987 Third diphtheria, tetanus and acellular pertussis (DTaP) vaccination TDAP (ADULT) [facility] Start: 1986 Hepatitis C screening Hepatitis C Screening [facility] Start: 1986 Tetanus vaccination TETANUS [facility] Start: 1983 HIV screening [facility] Start: 1980 COVID-19 Vaccine (1) COVID-19 Vaccine (1) [facility] Start: 1980 Depression screening using PHQ-9 (Patient Health Questionnaire 9) score [facility] Start: 1974 Pneumococcal Vaccine: Ped or At-Risk (1 - PCV) Pneumococcal Vaccine: Ped or At-Risk (1 - PCV) [facility] Start: 1974 Pneumococcal Vaccine: Ped or At-Risk (1 of 2 - PPSV23) Pneumococcal Vaccine: Ped or At-Risk (1 of 2 - PPSV23) [facility] Start: 1973 COVID-19 VACCINE (1) COVID-19 VACCINE (1) [facility] Start: 1971 History and physical examination, annual for health maintenance Wellness Visit [facility] Start: 1968 COVID-19 Vaccine (#1) COVID-19 Vaccine (#1) [facility] Start: 1968 Hepatitis C antibody, confirmatory test HEPATITIS C VIRUS SCREENING [facility] Start: 1968 Screening for malignant neoplasm of cervix Pap Smear [facility] Start: 1968 Screening for malignant neoplasm of colon [facility] Start: 1970 Tetanus vaccination Tetanus: Every 10yrs [facility] Payers Date Payer Category Payer Private Health Insurance [id number] 2020 Unknown [id number] 2020 Unknown [id number] 2017 Private Health Insurance 2017 Unknown 1968 Unknown [id number] 2.16. [id number] 1968 Unknown [id number] 2.16. [id number] 1968 Unknown [id number] 2.16. [id number] 1968 Unknown [id number] 2.16. 840.1.029706.3.579.2.356 1968 Unknown [id number] 2.16.8 [id number] 1968 Unknown [id number] 2.16.8 [id number] 1968 Unknown [id number] 2.16. 840.1.886264.3.579.2.903 1968 Unknown [id number] 2.16. 840.1.987835.3.579.2.903 1968 Unknown [id number] 2.16. [id number] 1968 Unknown [id number] 2.16. 840.1.157775.3.579.2.903 1968 Unknown [id number] 2.16. 840.1.026611.3.579.2.903 1968 Unknown [id number] 2.16. 840.1.036376.3.579.2.903 1968 Unknown [id number] 2.16. [id number] 1968 Unknown [id number] 2.16. [id number] 1968 Unknown [id number] 2.16. [id number] Self-pay [id number] Social History Date Type Detail Facility Start: 04-10-2021 End: 10-29-2022 Current every day smoker Current every day smoker [facility] Work Phone: Start: 12-25-2020 End: 04-10-2021 Tobacco smoking status PAIS Smokes tobacco daily [facility] Start: 12-25-2020 End: 09-12-2022 Tobacco use and exposure Smokeless tobacco non-user [facility] Start: 1970 Sex Assigned At Not on file [facility] Exposure to SARS-CoV-2 (event) Yes [facility] Tobacco smoking consumption unknown [facility] Start: 04-10-2021 End: 10-29-2022 Alcohol intake Ex-drinker (finding) [facility] Start: 11-22-2021 End: 12-02-2021 Exposure to SARS-CoV-2 (event) Not sure [facility] Start: 12-02-2021 End: 09-12-2022 Tobacco smoking status NHIS Ex-smoker [facility] End: 06-01-2021 History of tobacco use Current smoker [facility] End: 06-01-2021 History of tobacco use Cigarette Smoker [facility] Start: 10-29-2022 Tobacco use panel [facility] Start: 09-12-2022 Tobacco Comment Quit 1.5 years ago [facility] Start: 12-25-2020 Gender identity Identifies as female gender (finding) [facility] Medical Equipment Procedure Code Equipment Code Equipment Origin al Text Equipment Identifier Dates Screw 4 X 34mm C sandy Cisneros - [id number] Start: 09-12-2022 Clinical Notes 09-22-2020 to 12-13-2021 Ankur Hallman, LAURI - 12/02/2021 2:10 PM Zoë Temple MD - 04/10/2021 9:24 PM Patricio Verduzco RN - 04/10/2021 8:39 PM ESTPatient Instructions Note Date & Type Note Facility 12-13-2021 Note Clinic Note: Education Assessment: Learning BarriersNo barriers TaughtPatient Primary Language of PatientEnglish Name of Kelly Learner & Relationshiphusband Clinic Visit: Topic(s): Clinic VisitFollow-up plan MethodVerbal, Teach-Back, Handout EvaluationTeaches back Nursing Note: Nursing Notept set up for 6 month return. rtc for visit with CONTINUITY DIRECTOR on 06/27/22 at 8am- labs [facility] week prior Electronic Signatures: Allison Godinez (RN) (Signed 13-Dec-2021 08:34) Authored: Education Assessment, Clinic Visit, Nursing Note Last Updated: 13-Dec-2021 08:34 by Allison Godinez (RN) [facility] 12-02-2021 History of Present illness Narrative Patient Name: Sera Sheffield MR #: [id number] : 1970 Gender: female. Date of Consultation: 12/02/2021. Author: Ankur Hallman, FACHAYDEE Physicians: Gregorio Salmeron PA-C (Family); No ref. provider found (Referring) History of Present Illness: Sera Sheffield is a 51 y.o. female who follows up with pain in the ball the second metatarsal of the right foot. Patient relates she had bunion surgery 20 years ago. Patient relates he feels better to have shoes on the foot. Patient has a new complaint of heel pain in the left foot in the last 3 months. Patient wears steel toed shoes and has been taking Tylenol for relief. Patient relates the first few steps in the morning bother her. He is tried stretching and icing without much improvement. Assessment and Plan: 1. 1. Left foot pain XR Foot Left 3+ Views (Standard) 2. Right foot pain XR Foot Right 3+ Views (Standard) 3. Heel spur, left 4. Heel spur, right 5. Hammer toe of second toe of right foot 6. Metatarsalgia, right foot Plan: Patient was seen and evaluated. I discussed the findings with the patient. Patient was given opportunity to ask questions. Patient elects to have the following treatment as follows: Applied a metatarsal pad with a toe sling to take pressure off the ball of the right foot which gave her relief. Applied a Davina strap to the left foot to assist in ambulation. I prescribed Medrol Dosepak to take for both foot problems. I gave her stretching exercises to do for the left foot I have asked patient to wear shoes even around the house such as new balance. Reappoint in 2 weeks if not better may consider cortisone shots. If the metatarsal pad and [place] seem to help I will prescribe a pair of functional orthotics Lower Extremity: Integumentary: SEE wound picture Musculoskeletal: Pain on palpation of the medial and central bands of plantar fascial ligament of the left heel. 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 Patient has swelling of the second metatarsal phalange joint on the right foot. Patient has a positive Gaby test. There is a contracture of the second proximal interphalangeal joint that is some I fixed. Patient had no pain with first MPJ range of motion over the shaft the first metatarsal with screw fixation. Neurological: sensation intact Vascular: DP PT pulses are palpable bilateral feet * No LDAs found * BP 117/77 (BP Location: Left arm, Patient Position: Sitting, BP Cuff Size: Adult) Pulse 81 Temp 97.2 F (36.2 C) (Infrared) Allergy Information: I have reviewed the patient's allergies. Patient has no known allergies. Home Medications: Current Outpatient Medications Medication Sig Dispense Refill Advair HFA 230-21 mcg/actuation inhaler albuterol 90 mcg/actuation inhaler Inhale 2 (two) puffs every 6 (six) hours as needed . 6.7 g 0 apixaban (ELIQUIS) 5 mg Tab Take 1 (one) tablet (5 mg total) by mouth 2 (two) times a day . benzonatate (Tessalon Perles) 100 MG capsule Take one or two capsules every 8 hours as needed for cough. Do not chew. . (Patient not taking: Reported on 12/02/2021 .) 60 capsule 1 fluticasone propionate (FLONASE) 50 mcg/actuation nasal spray Instill 2 (two) sprays into each nostril daily . (Patient not taking: Reported on 12/02/2021 .) 16 g 0 methylPREDNISolone (MEDROL DOSEPACK) 4 mg tablet Follow package directions . 21 tablet 0 No current facility-administered medications for this visit. Review of Systems: The following system(s) were reviewed and pertinent findings noted: Pertinent positives and negatives as mentioned above, otherwise full review of systems is negative unless mentioned below: Patient currently denies Nausea/Vomiting/Fever/Chills/Short ness of Breath/Chest Pain. Medical History: Past Medical History: Diagnosis Date History of blood clots . Surgical History: Past Surgical History: Procedure Laterality Date FOOT SURGERY TUBAL LIGATION . Social History: Social History Socioeconomic History Marital status: Single Tobacco Use Smoking status: Former Types: Cigarettes Quit date: 06/2021 Years since quittin.5 Smokeless tobacco: Never Vaping Use Vaping Use: Never used Substance and Sexual Activity Alcohol use: Not Currently Drug use: Never Family History: Family History Problem Relation Age of Onset Lymphoma Mother Cancer Father Electronically signed by the above physician 12/02/21 documented in this encounter [facility] 05-19-2021 History of Present illness Narrative Pt has met all goals this date. Pt has appointment with physician this afternoon and believes she will be returning to full duty afterward. Pt has no questions or concerns this date, has no pain and no functional limitations.Patient was able to complete today's treatment with ease. [facility] Work Phone: 05-19-2021 Note Therapy Diagnosis Assessed Closed Colles' fracture of right radius with routine healing, subsequent encounter (V54.12) (X50.442T) Plan Goals: Goals set and discussed today. In 6 weeks, SERA SHEFFIELD will achieve the following goals: STG: SERA will demonstrate good carryover of HEP for ROM, strengthening and coordination in order to improve functional independence at home/work in 2 weeks. 05/12 goal met LTG: SERA to improve R hand coordination by decreasing 9HPT time by 3 seconds with no drops to improve manipulation of small objects. 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 04/28 goal met increased to 48 lbs, 23 increase LTG: SERA will increase R social work supervisor strength by 25 lbs to increase I with manipulating heavier objects to complete work and home tasks in 6 weeks. 05/19 goal met, increased by 32lbs LTG: SERA will increase R wrist extension/flexion to pain free ROM WFL. Pt will complete full flexion without presence of ulnar deviation within 6 weeks. 05/12 goal met, wrist ROM WFL no pain with UD/RD LTG: SERA will demonstrate improved functional independence at home by a decreased DASH score by 25 %. 05/19/21 decreased by 50% only reporting mild difficulty with a tight jar this date. 2.27% impairment. New goal 05/12/21 - Demo safe completion of functional work tasks of pushing up to 65 lbs pain free by 6 weeks. 05/12 goal met -Pt will demo functional endurance of x10 minutes to simulate RTW with minimal reports of fatigue by 6 weeks. 05/12 goal met , by week 6 Motor Function/Control/Tone: Intervention plan include: fluidotherapy , paraffin , education/instruction , home program , manual therapy , therapeutic activities and therapeutic exercises . Pt presenting this date to have met all goals assessed. Pt will be rechecked by OT on 05/19 and will address final goal, which pt is likely to reach. Frequency and duration: 2 time(s) a week, for 6 weeks. Potential to achieve rehab goals is good. Pt will be discharged from therapy this date following appointment/agreement from physician. Patient instructed to call if problems. Discharge patient:. Plan of care was developed with input and agreement by the patient. Assessment Pt has met all goals this date. Pt has appointment with physician this afternoon and believes she will be returning to full duty afterward. Pt has no questions or concerns this date, has no pain and no functional limitations. Patient was able to complete today's treatment with ease. Adult Risk Screening There are no spiritual/cultural practices/values/needs that are important to know Insurance Insurance reviewed Visit number: 12 Approved number of visits: 18 Authorization date range: 03/24/21-05/07/21 [facility] 03/15 POC 03/20 INS Onset Date: 2020 Subjective Patient reports:. Pt reporting she has no pain this date, and no concerns functionally. Pt has appointment with doctor this afternoon, expecting to return to light duty after appointment. Precautions: none Fall Risk: none Treatment Time in clinic started at 0910 am Time in clinic ended at 945 am Total time in clinic is 35 minutes. Total timed code time is 33 minutes. Therapeutic Activity (59446): timed minutes 35 . 915-1000 -Completed remaining recheck/discharge assessments, addressed goals. -R hand on 10# DB bicep curls 2x10 -R hand on 7# DB wrist flex/ext 2x10 -BUE passing 11# weighted ball back and forth x 1 min x 2 trials -Body blade x1 minute x2 trials each vertically and horizontally -green tsponge health program director to increase challenge. Treatment Performed Today Education on contrast bath to soak hand/wrist in prior to stretching, education on how to acquire and use home paraffin tank for pain and stiffness. Treatment Performed Today: therapeutic activities and education . Patient was able to: patient demonstrated/taught back good understanding of personalized exercise program as verbalized, demonstrated and/or provided in printed format. Patient was able to complete today's treatment with ease. Evaluation Code: 30 min(s). 73125 - OT Eval Low Complexity Timed: 1 unit(s), 15 min(s), 1 unit(s), 15 min(s). Contacts for Physician Signature Referring Provider Signature: I am in agreement with the above plan of care. Referring Provider Signature , Date/Time 'Scores and Scales' Signatures Electronically signed by : Octavia Blanco OTR/L; May 19 2021 9:41AM EST (Author) [facility] 05-10-2021 History of Present illness Narrative Pt demoing achievement of all intitial goals. New goals added to continue to address RTW endurance and strength. Pt demos good work endurance by completing functional work simulation task for x7 minutes. Pt sees physician Monday. Pt has no home concerns at this time, pt making great progress.Patient was able to complete today's treatment with some difficulty. [facility] Work Phone: 04-10-2021 Emergency department Note Emergency Department Report [facility] EMERGENCY DEPARTMENT Service Date:.04/10/21 PCP: No primary care provider on file. Chief Complaint: Chief Complaint Patient presents with Leg Pain Pt c/o left leg pain that started and swelling that started this morning. Pt states she has a history of blood clots and believes it is a clot Leg Swelling HPI Sera Sheffield is a 51 y.o. female presents to the ED today due to Complaints of leg swelling. She states that she noted a morning. She was seen at [facility] and outpatient ultrasound was ordered. She states that she came here in order to get a Doppler. These are only available until 8:00 PM. She states because of this she will go ahead and get a Doppler done as ordered at [facility]. She was given a Eliquis and is to start. Review of Systems: Review of Systems Constitutional: Negative. Respiratory: Negative for shortness of breath. Cardiovascular: Positive for leg swelling. Negative for chest pain. Past Medical History: Past Medical History: Diagnosis Date DVT (deep venous thrombosis) Past Surgical History: No past surgical history on file. Allergies: No Known Allergies Medications: Patient's Medications No medications on file Family History: History reviewed. No pertinent family history. Social History: Social History Socioeconomic History Marital status: Not on file Spouse name: Not on file Number of children: Not on file Years of education: Not on file Highest education level: Not on file Occupational History Not on file Tobacco Use Smoking status: Current Every Day Smoker Packs/day: 1.00 Smokeless tobacco: Never Used Substance and Sexual Activity Alcohol use: Not Currently Drug use: Not Currently Sexual activity: Not on file Other Topics Concern Not on file Social History Narrative Not on file Social Determinants of Health Financial Resource Strain: Not on file Food Insecurity: Not on file Transportation Needs: Not on file Physical Activity: Not on file Stress: Not on file Social Connections: Not on file Intimate Partner Violence: Not on file Housing Stability: Not on file Physical Exam: Physical Exam Vitals and nursing note reviewed. Eyes: Extraocular Movements: Extraocular movements intact. Pupils: Pupils are equal, round, and reactive to light. Musculoskeletal: General: Swelling present. Neurological: Mental Status: She is alert. Vital Signs During ED Visit Patient Vitals for the past 24 hrs: BP Temp Pulse Resp SpO2 Height 04/10/212034 1.753 m (5' 9 ) 04/10/212033 127/87 98.3 F (36.8 C) 97 16 94 % Orders/Results: No orders of the defined types were placed in this encounter. No results found for this or any previous visit. Radiographic Imaging No orders to display Procedures: Procedures Moderate Sedation Procedure: Yes ED Summary/MDM Patient arrives requesting Doppler. These are not available and she has one ordered per [facility]. Clinical Impression: Left Lower Extremity Swelling r/o dvt No follow-ups on file. New Prescriptions No medications on file Discontinued Medications No medications on file An After Visit Summary was printed and given to the patient with above information. Fabricio Temple MD 04/10/212125 Pt instructed to notify staff if condition changes. Pt verbalized understanding. documented in this encounter [facility] 12-25-2020 Instructions Bindu Schroeder CNP - 12/25/2020 4:48 PM EDT Images from the original note were not included. 9 Things To Do If You've Been Exposed to COVID-19 If you are fully vaccinated or have recently been sick with COVID-19, you may not need to quarantine. But you may need to be tested and wear a mask in public indoor spaces for 14 days or until you test negative for COVID-19. Stay home. If you've been exposed to the virus but don't have symptoms, you may need to stay in quarantine for up to 14 days. In some cases it may be shorter. Ask your doctor when it's safe to end your quarantine. Be sure to follow all instructions from your local health authorities. Don't go to school, work, or public areas. And don't use public transportation, ride-shares, or taxis unless you have no choice. Leave your home only if you need to get medical care. But call the doctor's office first so they know you're coming. Call your doctor. Call your doctor or other health professional to let them know that you've been exposed. They might want you to be tested, or they may have other instructions for you. Wear a mask when you are around other people. It can help stop the spread of the virus. Limit contact with people in your home. If possible, stay in a separate bedroom and use a separate bathroom. Avoid contact with pets and other animals. Cover your mouth and nose with a tissue when you cough or sneeze. Then throw it in the trash right away. Wash your hands often, especially after you cough or sneeze. Use soap and water, and scrub for at least 20 seconds. If soap and water aren't available, use an alcohol-based hand excellence consultant. Don't share personal household items. These include bedding, towels, cups and glasses, and eating utensils. Clean and disinfect your home every day. Use household bioinformatics programmer or disinfectant wipes or sprays. Current as of: June 26, 2020 Content Version: 13.0 [employer] Care instructions adapted under license by your healthcare professional. If you have questions about a medical condition or this instruction, always ask your healthcare professional. [employer] disclaims any warranty or liability for your use of this information. 10 Things to Do When You Have COVID-19 Stay home. Don't go to school, work, or public areas. And don't use public transportation, ride-shares, or taxis unless you have no choice. Leave your home only if you need to get medical care. But call the doctor's office first so they know you're coming. And wear a mask. Ask before leaving isolation. Follow your doctor's advice about when it is safe for you to leave isolation. Wear a mask when you are around other people. It can help stop the spread of the virus. Limit contact with people in your home. If possible, stay in a separate bedroom and use a separate bathroom. Avoid contact with pets and other animals. If possible, have a friend or family member care for them while you're sick. Cover your mouth and nose with a tissue when you cough or sneeze. Then throw the tissue in the trash right away. Wash your hands often, especially after you cough or sneeze. Use soap and water, and scrub for at least 20 seconds. If soap and water aren't available, use an alcohol-based hand excellence consultant. Don't share personal household items. These include bedding, towels, cups and glasses, and eating utensils. Clean and disinfect your home every day. Use household bioinformatics programmer or disinfectant wipes or sprays. If needed, take acetaminophen (Tylenol) or ibuprofen (Advil, Motrin) to relieve fever and body aches. Read and follow all instructions on the label. Current as of: June 26, 2020 Content Version: 13.0 [employer] Care instructions adapted under license by your healthcare professional. If you have questions about a medical condition or this instruction, always ask your healthcare professional. [employer] disclaims any warranty or liability for your use of this information. Learning About Benefits From Quitting Smoking How does quitting smoking make you healthier? If you're thinking about quitting smoking, you may have a few reasons to be smoke-free. Your health may be one of them. When you quit smoking, you lower your risks for cancer, lung disease, heart attack, stroke, blood vessel disease, and blindness from macular degeneration. When you're smoke-free, you get sick less often, and you heal faster. You are less likely to get colds, flu, bronchitis, and pneumonia. As a nonsmoker, you may find that your mood is better and you are less stressed. When and how will you feel healthier? Quitting has real health benefits that start from day 1 of being smoke-free. And the longer you stay smoke-free, the healthier you get and the better you feel. The first hours After just 20 minutes, your blood pressure and heart rate go down. That means there's less stress on your heart and blood vessels. Within 12 hours, the level of carbon monoxide in your blood drops back to normal. That makes room for more oxygen. With more oxygen in your body, you may notice that you have more energy than when you smoked. After 2 weeks Your lungs start to work better. Your risk of heart attack starts to drop. After 1 month When your lungs are clear, you cough less and breathe deeper, so it's easier to be active. Your sense of taste and smell return. That means you can enjoy food more than you have since you started smoking. Over the years Over the years, your risks of heart disease, heart attack, and stroke are lower. After 10 years, your risk of dying from lung cancer is cut by about half. And your risk for many other types of cancer is lower too. How would quitting help others in your life? When you quit smoking, you improve the health of everyone who now breathes in your smoke. Their heart, lung, and cancer risks drop, much like yours. They are sick less. For babies and small children, living smoke-free means they're less likely to have ear infections, pneumonia, and bronchitis. If you're a woman who is or will be someday, quitting smoking means a healthier . Children who are close to you are less likely to become adult smokers. Where can you learn more? Log into your personal health record on?https://POS on [employer].powervault? and enter?O319?in the Education box to learn more about Learning About Benefits From Quitting Smoking. Current as of: May 14, 2020 Content Version: 13.0 [employer] Care instructions adapted under license by your healthcare professional. If you have questions about a medical condition or this instruction, always ask your healthcare professional. [employer] disclaims any warranty or liability for your use of this information. Sera, your COVID test is negative today. I sent in medication for symptomatic relief. You may retest in 48 hour if you develop more symptoms. Quarantine for 14 days from exposure. Follow up any concerns. Please consider smoking cessation. documented in this encounter [facility] 12-25-2020 History of Present illness Narrative Images from the original note were not included. Patient Name: [facility] Location: Sera Sheffield [address] [facility] [id number] Date Of : Date Of Visit: 1970 12/25/2020 MRN# Provider: [id number] Bindu Schroeder CNP Chief Complaint Patient presents with Covid-19 Screening elaine, body aches, runny nose, x 12/22, not hcw, exposed 12/22, no vaxx Assessment & Plan 1. Close exposure to COVID-19 virus COVID-19, Molecular 2. Acute nonintractable headache, unspecified headache type COVID-19, Molecular 3. Body aches COVID-19, Molecular 4. Rhinorrhea COVID-19, Molecular 5. Cigarette smoker 6. Upper respiratory tract infection, unspecified type fluticasone propionate (FLONASE) 50 mcg/actuation nasal spray benzonatate (Tessalon Perles) 100 MG capsule albuterol 90 mcg/actuation inhaler No follow-ups on file. Medical Decision Making Non-toxic in NAD with URI symptoms onset 12/22/2020. Reports COVID exposure by someone who lives in the home. Daily smoker. Does not need a work note. COVID - Negative Additional Clinical Comments Encouraged smoking cessation. See AVS Subjective 50 y.o. female presents with Covid-19 Screening (elaine, body aches, runny nose, x 12/22, not hcw, exposed 12/22, no vaxx) Here for COVID screening. ELAINE, body aches and runny nose onset 12/22/2020. COVID exposure. URI This is a new problem. The current episode started in the past 7 days. The problem has been gradually worsening. There has been no fever. Associated symptoms include coughing, headaches, nausea and rhinorrhea. Pertinent negatives include no congestion, diarrhea, sore throat, vomiting or wheezing. She has tried NSAIDs for the symptoms. The treatment provided mild relief. Review Of Systems Review of Systems Constitutional: Positive for chills and fatigue. Negative for fever. HENT: Positive for rhinorrhea. Negative for congestion and sore throat. No new loss of taste or smell. Respiratory: Positive for cough. Negative for shortness of breath and wheezing. Deep cough. Non-productive. Gastrointestinal: Positive for nausea. Negative for diarrhea and vomiting. Musculoskeletal: Positive for myalgias. Neurological: Positive for headaches. Medical History History reviewed. No pertinent past medical history. History reviewed. No pertinent surgical history. There is no problem list on file for this patient. Social History Social History Tobacco Use Smoking status: Current Every Day Smoker Smokeless tobacco: Never Used Substance Use Topics Alcohol use: Not on file Drug use: Not on file Family History History reviewed. No pertinent family history. Objective Physical Exam BP 112/73 (BP Location: Right arm, Patient Position: Sitting) Pulse 79 Temp 98.1 F (36.7 C) (Infrared) Resp 16 Ht 5' 7.5 Wt 72.6 kg (160 lb) SpO2 94% BMI 24.69 kg/m Vision/Hearing Exam:No exam data present Physical Exam Vitals and nursing note reviewed. Constitutional: General: She is not in acute distress. Appearance: Normal appearance. She is not ill-appearing, toxic-appearing or diaphoretic. HENT: Head: Normocephalic and atraumatic. Right Ear: Tympanic membrane, ear canal and external ear normal. Left Ear: Tympanic membrane, ear canal and external ear normal. Mouth/Throat: Mouth: Mucous membranes are moist. Pharynx: Oropharynx is clear. Cardiovascular: Rate and Rhythm: Normal rate and regular rhythm. Heart sounds: Normal heart sounds. Pulmonary: Effort: Pulmonary effort is normal. Breath sounds: Normal breath sounds. Skin: General: Skin is warm and dry. Neurological: Mental Status: She is alert and oriented to person, place, and time. GCS: GCS eye subscore is 4. GCS verbal subscore is 5. GCS motor subscore is 6. Psychiatric: Mood and Affect: Mood normal. Behavior: Behavior normal. Procedure Notes Procedures Results Recent Results (from the past 168 hour(s)) COVID-19, Molecular Collection Time: 12/25/20 4:27 PM Specimen: Nasopharyngeal; Swab Result Value Ref Range SARS-CoV-2 Not Detected Not Detected No orders to display Orders Placed This Visit Orders Placed This Encounter Procedures COVID-19, Molecular Medication List At End Of Visit Current Outpatient Medications Medication Sig Dispense Refill albuterol 90 mcg/actuation inhaler Inhale 2 (two) puffs every 6 (six) hours as needed . 6.7 g 0 benzonatate (Tessalon Perles) 100 MG capsule Take one or two capsules every 8 hours as needed for cough. Do not chew. . 60 capsule 1 fluticasone propionate (FLONASE) 50 mcg/actuation nasal spray Instill 2 (two) sprays into each nostril daily . 16 g 0 No current facility-administered medications for this visit. Patient Instructions 9 Things To Do If You've Been Exposed to COVID-19 If you are fully vaccinated or have recently been sick with COVID-19, you may not need to quarantine. But you may need to be tested and wear a mask in public indoor spaces for 14 days or until you test negative for COVID-19. Stay home. If you've been exposed to the virus but don't have symptoms, you may need to stay in quarantine for up to 14 days. In some cases it may be shorter. Ask your doctor when it's safe to end your quarantine. Be sure to follow all instructions from your local health authorities. Don't go to school, work, or public areas. And don't use public transportation, ride-shares, or taxis unless you have no choice. Leave your home only if you need to get medical care. But call the doctor's office first so they know you're coming. Call your doctor. Call your doctor or other health professional to let them know that you've been exposed. They might want you to be tested, or they may have other instructions for you. Wear a mask when you are around other people. It can help stop the spread of the virus. Limit contact with people in your home. If possible, stay in a separate bedroom and use a separate bathroom. Avoid contact with pets and other animals. Cover your mouth and nose with a tissue when you cough or sneeze. Then throw it in the trash right away. Wash your hands often, especially after you cough or sneeze. Use soap and water, and scrub for at least 20 seconds. If soap and water aren't available, use an alcohol-based hand excellence consultant. Don't share personal household items. These include bedding, towels, cups and glasses, and eating utensils. Clean and disinfect your home every day. Use household bioinformatics programmer or disinfectant wipes or sprays. Current as of: June 26, 2020 Content Version: 13.0 [employer] Care instructions adapted under license by your healthcare professional. If you have questions about a medical condition or this instruction, always ask your healthcare professional. [employer] disclaims any warranty or liability for your use of this information. 10 Things to Do When You Have COVID-19 Stay home. Don't go to school, work, or public areas. And don't use public transportation, ride-shares, or taxis unless you have no choice. Leave your home only if you need to get medical care. But call the doctor's office first so they know you're coming. And wear a mask. Ask before leaving isolation. Follow your doctor's advice about when it is safe for you to leave isolation. Wear a mask when you are around other people. It can help stop the spread of the virus. Limit contact with people in your home. If possible, stay in a separate bedroom and use a separate bathroom. Avoid contact with pets and other animals. If possible, have a friend or family member care for them while you're sick. Cover your mouth and nose with a tissue when you cough or sneeze. Then throw the tissue in the trash right away. Wash your hands often, especially after you cough or sneeze. Use soap and water, and scrub for at least 20 seconds. If soap and water aren't available, use an alcohol-based hand excellence consultant. Don't share personal household items. These include bedding, towels, cups and glasses, and eating utensils. Clean and disinfect your home every day. Use household bioinformatics programmer or disinfectant wipes or sprays. If needed, take acetaminophen (Tylenol) or ibuprofen (Advil, Motrin) to relieve fever and body aches. Read and follow all instructions on the label. Current as of: June 26, 2020 Content Version: 13.0 [employer] Care instructions adapted under license by your healthcare professional. If you have questions about a medical condition or this instruction, always ask your healthcare professional. [employer] disclaims any warranty or liability for your use of this information. Learning About Benefits From Quitting Smoking How does quitting smoking make you healthier? If you're thinking about quitting smoking, you may have a few reasons to be smoke-free. Your health may be one of them. When you quit smoking, you lower your risks for cancer, lung disease, heart attack, stroke, blood vessel disease, and blindness from macular degeneration. When you're smoke-free, you get sick less often, and you heal faster. You are less likely to get colds, flu, bronchitis, and pneumonia. As a nonsmoker, you may find that your mood is better and you are less stressed. When and how will you feel healthier? Quitting has real health benefits that start from day 1 of being smoke-free. And the longer you stay smoke-free, the healthier you get and the better you feel. The first hours After just 20 minutes, your blood pressure and heart rate go down. That means there's less stress on your heart and blood vessels. Within 12 hours, the level of carbon monoxide in your blood drops back to normal. That makes room for more oxygen. With more oxygen in your body, you may notice that you have more energy than when you smoked. After 2 weeks Your lungs start to work better. Your risk of heart attack starts to drop. After 1 month When your lungs are clear, you cough less and breathe deeper, so it's easier to be active. Your sense of taste and smell return. That means you can enjoy food more than you have since you started smoking. Over the years Over the years, your risks of heart disease, heart attack, and stroke are lower. After 10 years, your risk of dying from lung cancer is cut by about half. And your risk for many other types of cancer is lower too. How would quitting help others in your life? When you quit smoking, you improve the health of everyone who now breathes in your smoke. Their heart, lung, and cancer risks drop, much like yours. They are sick less. For babies and small children, living smoke-free means they're less likely to have ear infections, pneumonia, and bronchitis. If you're a woman who is or will be someday, quitting smoking means a healthier . Children who are close to you are less likely to become adult smokers. Where can you learn more? Log into your personal health record on?https://[employer]? and enter?O319?in the Education box to learn more about Learning About Benefits From Quitting Smoking. Current as of: May 14, 2020 Content Version: 13.0 [employer] Care instructions adapted under license by your healthcare professional. If you have questions about a medical condition or this instruction, always ask your healthcare professional. [employer] disclaims any warranty or liability for your use of this information. Sera, your COVID test is negative today. I sent in medication for symptomatic relief. You may retest in 48 hour if you develop more symptoms. Quarantine for 14 days from exposure. Follow up any concerns. Please consider smoking cessation. documented in this encounter [facility] 09-22-2020 Note HNO ID: [id number] Author: Vita Truong OD Service: ? Author Type: MESSAGE CLERK Type: Progress Notes Filed: 09/22/2020 5:23 PM Note Text: ASSESSMENT/PLAN: 1. Hyperopia, bilateral - ICD9: 367.0, ICD10: H52.03 (primary diagnosis) 2. 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 Presbyopia - ICD9: 367.4, ICD10: H52.4 Continue to wear her glasses with the update. Recommended yearly exams. Vita Truong OD [facility] Localized swelling of left lower extremity- Primary [facility] Left foot pain- Primary Pain in soft tissues of limb Right foot pain Pain in soft tissues of limb Heel spur, left Heel spur, right Hammer toe of second toe of right foot Metatarsalgia, right foot [facility] Paresthesia of both hands- [facility] Diagnosis Closed displaced transverse fracture of right patella, initial encounter- Primary [facility] : 2. full term: 2 and livin. The patient is postmenopausal. HPV Negative. Date of last pap smear: 2014. * Screening Mammogram: Date of Last Screening Mammogram: 2014. * The patient's health since the last visit is described as good. * 2 weeks * when laying down * 2 min-15 min. * Acetaminopen or ibuprofen * achy * swelled and raw sensation * no known associations. [facility] Work Phone: History of Present illness Narrative* : 2. full term: 2 and livin. The patient is postmenopausal. HPV Negative. Date of last pap smear: 2014. * Screening Mammogram: Date of Last Screening Mammogram: 2014. * The patient's health since the last visit is described as good. * 2 weeks * when laying down * 2 min-15 min. * Acetaminopen or ibuprofen * achy * swelled and raw sensation * no known associations. [facility] Work Phone: history of Present illness Narrative* Female Health: Date of last period: 2016. : 2. full term: 2 and livin. The patient is postmenopausal. HPV Negative. Date of last pap smear: 2014. * Screening Mammogram: Date of Last Screening Mammogram: 2014. * Screening Colonoscopy: Patient refused colonoscopy. * Concerns raised today include: Acute vaginal discomfort. * The patient's health since the last visit is described as good. * 50 y.o. 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 She reports feeling like her vagina is swollen and raw when she lays down on several occasions over the last 2 weeks.. The symptoms are not consistent with any activity that she can pinpoint. The symptomslast anywhere from 2 minutes to 15 minutes. She has taken acetaminophen or ibuprofen and it has been effective for relief. She is and is sexually active. She denies dyspareunia. She is menopausal and denies breakthrough bleeding. She denies abdominal pain or dysuria. She denies notable discharge. [facility] Work Phone: [place] of Present illness Narrative* Female Health: Date of last period: 2016. : 2. full term: 2 and livin. The patient is postmenopausal. HPV Negative. Date of last pap smear: 2014. * Screening Mammogram: Date of Last Screening Mammogram: 2014. * Screening Colonoscopy: Patient refused colonoscopy. * Concerns raised today include: Acute vaginal discomfort. * The patient's health since the last visit is described as good. * 50 y.o. 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 She reports feeling like her vagina is swollen and raw when she lays down on several occasions over the last 2 weeks.. The symptoms are not consistent with any activity that she can pinpoint. The symptomslast anywhere from 2 minutes to 15 minutes. She has taken acetaminophen or ibuprofen and it has been effective for relief. She is and is sexually active. She denies dyspareunia. She is menopausal and denies breakthrough bleeding. She denies abdominal pain or dysuria. She denies notable discharge. -[facility] Work Phone: History of Present illness Narrative* Female Health: Date of last period: 2016. : 2. full term: 2 and livin. The patient is postmenopausal. HPV Negative. Date of last pap smear: 2014. * Screening Mammogram: Date of Last Screening Mammogram: 2014. * Screening Colonoscopy: Patient refused colonoscopy. * Concerns raised today include: Acute vaginal discomfort. * The patient's health since the last visit is described as good. * 50 y.o. 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 She reports feeling like her vagina is swollen and raw when she lays down on several occasions over the last 2 weeks.. The symptoms are not consistent with any activity that she can pinpoint. The symptomslast anywhere from 2 minutes to 15 minutes. She has taken acetaminophen or ibuprofen and it has been effective for relief. She is and is sexually active. She denies dyspareunia. She is menopausal and denies breakthrough bleeding. She denies abdominal pain or dysuria. She denies notable discharge. -[facility] Work Phone: History of Present illness NarrativeSERA SHEFFIELD was evaluated today for R radius fracture . SERA would benefit from regular outpatient OT x[] /week for 4 weeks in order to improve AROM/PROM, strengthening, coordination, scar management and activity tolerance to improve functional independence in ADLs/IADLs/work tasks. [facility] Work Phone: history of Present illness Narrative* Patient c/o 2/10 pain w/ PROM supination to R wrist, patient able to complete all activities easily, c/o fatigue in R wrist at end of session. * Patient was able to complete today's treatment with some difficulty. [facility]: history of Present illness Narrative* Pt with no pain at beginning of session. Pt noticing stretch with sup/pronation and weight AROM. Pttolerating all activities well this date. Pt with difficulty passing 3.3 lb back and forth, downgraded to 2.2lb ball. * Patient was able to complete today's treatment with some difficulty. [facility] Work Phone: history of Present illness Narrative* Pt with no pain at beginning of session. Pt tolerating all exercises well. Pt increasing weight this date to facilitate return to work. Pt tolerating all weight increases with some difficulty. Pt tolerating increase from green flex bar to blue with increased shakiness but no pain and some difficulty with completion. Pt with minimal drops with peg activity this date. * Patient was able to complete today's treatment with some difficulty. [facility] Work Phone: history of Present illness Narrative* Pt with no pain at beginning of session. Pt tolerating all exercises well. Pt continuing with increasing weight this date to facilitate return to work. Pt tolerating all weight increases with some difficulty. Pt completed 3 trials of venkat dynamometer with R 58 L 48. Pt demonstrating increase with social work supervisor strength. Simulating work motions with 10lbs this date, pt with some discomfort but able to complete, discomfort quickly subsiding. Pt demonstrating improved FMC with 5pegs in hand with no drops. * Patient was able to complete today's treatment with some difficulty. [facility] Work Phone: history of Present illness Narrative* No pain reported throughout session, extended time required for flex bar exercises d/t fatigue of Rhand/wrist. patient states she feels fatigued but less stiff after session. Patient educated on how to use and acquire home paraffin tank for pain and stiffness. * Patient was able to complete today's treatment with some difficulty. [facility] Work [facility]: History of Present illness Narrative* Pt tolerating all tasks this date. Pt challenged by therabally task for removing suction from table. Pt stating she feels more of a stretch with the resisted wrist extension. Pt requiring vc for keeping elbows in for blue flex bar to focus on wrist. Completing task, pt with some shakiness. * Patient was able to complete today's treatment with some difficulty. [facility] Work [facility]: History of Present illness Narrative* Patient tolerated all activities well, no pain reported throughout session, patient states she had some fatigue and stretching in R wrist when picking up flat rocks with tennis ball. Patient showing 30# increase in R social work supervisor strength this date from evaluation. * Patient was able to complete today's treatment with some difficulty. [facility] Work Phone: History of Present illness Narrative* Patient able to complete all activities with ease this date, no pain reported, patient however c/o fatigue on second trial of dystophyle. Patient states she thinks she is ready to be done with therapy and that she feels she is doing very well. * Patient was able to complete today's treatment with ease. [facility] Work Phone: Hospital Discharge instructions* Attachments The following attachments cannot be sent through Care Everywhere. * Edema: Leg and Ankle ([place]) [facility] Attachments The following attachments cannot be sent through Care Everywhere. * Plantar Fasciitis ([place]) * Hammer Toe ([place]) [facility] Family History No Family History Records FoundUnknown Family Member Name Dates Details Family history of diabetes elysia nicolas: Mother(V18.0, Z83.3) Status:Active Family history of lymphoma: Mother(V16.7, Z80.7) Status:Active Family history of malignant neoplasm: Father(V16.9, Z80.9) Status:Active Unknown Family Member Name Dates Details Family history of diabetes m ellitus: Mother(V18.0, Z83.3) Status:Active Family history of lymphoma: Mother(V16.7, Z80.7) Status:Active Family history of malignant neoplasm: Father(V16.9, Z80.9) Status:Active Unknown Family Member Name Dates Details Family history of diabetes m ellitus: Mother(V18.0, Z83.3) Status:Active Family history of lymphoma: Mother(V16.7, Z80.7) Status:Active Family history of malignant neoplasm: Father(V16.9, Z80.9) Status:Active Unknown Family Member Name Dates Details Family history of diabetes m ellitus: Mother(V18.0, Z83.3) Status:Active Family history of lymphoma: Mother(V16.7, Z80.7) Status:Active Family history of malignant neoplasm: Father(V16.9, Z80.9) Status:Active Unknown Family Member Name Dates Details Family history of diabetes m ellitus: Mother(V18.0, Z83.3) Status:Active Family history of lymphoma: Mother(V16.7, Z80.7) Status:Active Family history of malignant neoplasm: Father(V16.9, Z80.9) Status:Active Unknown Family Member Name Dates Details Family history of diabetes m ellitus: Mother(V18.0, Z83.3) Status:Active Family history of lymphoma: Mother(V16.7, Z80.7) Status:Active Family history of malignant neoplasm: Father(V16.9, Z80.9) Status:Active Unknown Family Member Name Dates Details Family history of diabetes m ellitus: Mother(V18.0, Z83.3) Status:Active Family history of lymphoma: Mother(V16.7, Z80.7) Status:Active Family history of malignant neoplasm: Father(V16.9, Z80.9) Status:Active Unknown Family Member Name Dates Details Family history of diabetes m ellitus: Mother(V18.0, Z83.3) Status:Active Family history of lymphoma: Mother(V16.7, Z80.7) Status:Active Family history of malignant neoplasm: Father(V16.9, Z80.9) Status:Active Unknown Family Member Name Dates Details Family history of diabetes m ellitus: Mother(V18.0, Z83.3) Status:Active Family history of lymphoma: Mother(V16.7, Z80.7) Status:Active Family history of malignant neoplasm: Father(V16.9, Z80.9) Status:Active Unknown Family Member Name Dates Details Family history of diabetes m ellitus: Mother(V18.0, Z83.3) Status:Active Family history of lymphoma: Mother(V16.7, Z80.7) Status:Active Family history of malignant neoplasm: Father(V16.9, Z80.9) Status:Active Unknown Family Member Name Dates Details Family history of diabetes m ellitus: Mother(V18.0, Z83.3) Status:Active Family history of lymphoma: Mother(V16.7, Z80.7) Status:Active Family history of malignant neoplasm: Father(V16.9, Z80.9) Status:Active Unknown Family Member Name Dates Details Family history of diabetes m ellitus: Mother(V18.0, Z83.3) Status:Active Family history of lymphoma: Mother(V16.7, Z80.7) Status:Active Family history of malignant neoplasm: Father(V16.9, Z80.9) Status:Active Unknown Family Member Name Dates Details Family history of diabetes m ellitus: Mother(V18.0, Z83.3) Status:Active Family history of lymphoma: Mother(V16.7, Z80.7) Status:Active Family history of malignant neoplasm: Father(V16.9, Z80.9) Status:Active Unknown Family Member Name Dates Details Family history of malignant neoplasm: Father(V16.9, Z80.9) Status:Active Family history of lymphoma: Mother(V16.7, Z80.7) Status:Active Family history of diabetes m ellitus: Mother(V18.0, Z83.3) Status:Active Unknown Family Member Name Dates Details Family history of diabetes m ellitus: Mother(V18.0, Z83.3) Status:Active Family history of lymphoma: Mother(V16.7, Z80.7) Status:Active Family history of malignant neoplasm: Father(V16.9, Z80.9) Status:Active Unknown Family Member Name Dates Details Family history of diabetes m ellitus: Mother(V18.0, Z83.3) Status:Active Family history of lymphoma: Mother(V16.7, Z80.7) Status:Active Family history of malignant neoplasm: Father(V16.9, Z80.9) Status:Active Unknown Family Member Name Dates Details Family history of diabetes m ellitus: Mother(V18.0, Z83.3) Status:Active Family history of lymphoma: Mother(V16.7, Z80.7) Status:Active Family history of malignant neoplasm: Father(V16.9, Z80.9) Status:Active Unknown Family Member Name Dates Details Family history of diabetes m ellitus: Mother(V18.0, Z83.3) Status:Active Family history of lymphoma: Mother(V16.7, Z80.7) Status:Active Family history of malignant neoplasm: Father(V16.9, Z80.9) Status:Active Unknown Family Member Name Dates Details Family history of diabetes m ellitus: Mother(V18.0, Z83.3) Status:Active Family history of lymphoma: Mother(V16.7, Z80.7) Status:Active Family history of malignant neoplasm: Father(V16.9, Z80.9) Status:Active Unknown Family Member Name Dates Details Family history of diabetes m ellitus: Mother(V18.0, Z83.3) Status:Active Family history of lymphoma: Mother(V16.7, Z80.7) Status:Active Family history of malignant neoplasm: Father(V16.9, Z80.9) Status:Active Unknown Family Member Name Dates Details Family history of diabetes m ellitus: Mother(V18.0, Z83.3) Status:Active Family history of lymphoma: Mother(V16.7, Z80.7) Status:Active Family history of malignant neoplasm: Father(V16.9, Z80.9) Status:Active Unknown Family Member Name Dates Details Family history of diabetes m ellitus: Mother(V18.0, Z83.3) Status:Active Family history of lymphoma: Mother(V16.7, Z80.7) Status:Active Family history of malignant neoplasm: Father(V16.9, Z80.9) Status:Active Unknown Family Member Name Dates Details Family history of diabetes m ellitus: Mother(V18.0, Z83.3) Status:Active Family history of lymphoma: Mother(V16.7, Z80.7) Status:Active Family history of malignant neoplasm: Father(V16.9, Z80.9) Status:Active Family history of ulcerative colitis: Father(V18.59, Z83.79) Status:Active Unknown Family Member Name Dates Details Family history of diabetes m ellitus: Mother(V18.0, Z83.3) Status:Active Family history of lymphoma: Mother(V16.7, Z80.7) Status:Active Family history of malignant neoplasm: Father(V16.9, Z80.9) Status:Active Family history of ulcerative colitis: Father(V18.59, Z83.79) Status:Active Advance Directives No Advanced Directives Records FoundDocuments on File Type Date Recorded 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 Advance Directives and Living Will Latest Code Status on File Code Status Date Activated Date Inactivated Comments Full Code 09/12/2022 1:00 PM 09/13/2022 7:23 PM Chief Complaint [facility] Reason for Referral Specialty Diagnoses / Procedures Referred By Wan owusu Referred To Contact Neurology Diagnoses Paresthesia of both hands Gregorio Salmeron PA-C [address] [place] [address] Orlando Schmitz MD [address] [place] [address] [place] [address] Referral ID Status Reason Start Date Expiration Date V isits Requested Visits Authorized [id number] Authorized 02/21/2022 02/21/2023 1 1 Additional Source Comments INFORMATION SOURCE (unrecogn ized section and content) DATE CREATED AUTHOR AUTHOR'S ORGANIZ ATION 12/30/2020 [facility] DATE CREATED AUTHOR AUTHOR'S ORGANIZ ATION 05/05/2021 [facility] DATE CREATED AUTHOR AUTHOR'S ORGANIZ ATION 06/30/2021 [facility] DATE CREATED AUTHOR AUTHOR'S ORGANIZ ATION 01/01/2022 [facility] DATE CREATED AUTHOR AUTHOR'S ORGANIZ ATION 09/15/2022 [facility] DATE CREATED AUTHOR AUTHOR'S ORGANIZ ATION 09/30/2022 [facility] DATE CREATED AUTHOR AUTHOR'S ORGANIZ ATION 11/01/2022 [facility] DATE CREATED AUTHOR AUTHOR'S ORGANIZ ATION 06/02/2023 [facility] Reason for Visit (unrecogniz ed section and content) Reason Comments Leg Pain Pt c/o left leg pain that started and swelling that started this morning. Pt states she has a history of blood clots and believes it is a clot Leg Swelling Reason Comments Foot Pain Pt states she has du ll aching bottom across the whole bottom of her feet. Pt states the pain has gotten worse over the past 3 months. States she wears steal toe shoes. Pt states pain medications help some when pain is really bad. 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 Section Author: Estelle Rodney PROHIBITION ON REDISCLOSURE OF CONFIDENTIAL INFORMATION This notice accompanies a disclosure of information concerning a client made to you with the consent of such client. Section Author: Estelle Rodney PROHIBITION ON REDISCLOSURE OF CONFIDENTIAL INFORMATION This notice accompanies a disclosure of information concerning a client made to you with the consent of such client. FOR RECORDS PERTAINING TO PATIENTS WHO ARE OR HAVE BEEN ENROLLED IN A CHEMICAL DEPENDENCY/SUBSTANCEABUSE PROGRAM, SOME INFORMATION MAY BE OMITTED. This clinical summary was aggregated from multiple sources. Caution should be exercised in using it in the provision of clinical care. This summary normalizes information from multiple sources, and as a consequence, information in this document may materially change the coding, format and clinical context of patient data. In addition, data may be omitted in some cases. CLINICAL DECISIONS SHOULD BE BASED ON THE PRIMARY CLINICAL RECORDS. [employer] [facility]. provides no warranty or guarantee of the accuracy or completeness of information in this document.
[2023-06-09 02:28] VITALS: BP 111/75; PULSE 111; RESP 18; TEMP 36.7; O2SAT 93
== END 2023-06-09 02:31 | disposition home or self-care (01) ==
PROVIDERS: Emergency Provider Emergency Medicine; PCP Physician Assistant; Visit Provider Emergency Medicine
DX: J44.1 Chronic obstructive pulmonary disease with (acute) exacerbation (principal); Z79.01 Long term (current) use of anticoagulants; Z79.899 Other long term (current) drug therapy; Z87.891 Personal history of nicotine dependence; Z86.718 Personal history of other venous thrombosis and embolism
CPT/HCPCS: 71045; 80048; 84484; 85025; 87631; 93005; 94640; 96374; 99283; A4216

== ENCOUNTER → 2024-09-27 | Outpatient (CLI) | payer OTHER, SELFPAY | END | disposition home or self-care (01) | PROVIDERS: PCP Physician Assistant; Referring Provider Physician Assistant; Visit Provider Physician Assistant | DX: J44.9 Chronic obstructive pulmonary disease, unspecified (principal) | CPT/HCPCS: 94060; 94726; 94729 ==